=== PATIENT | female | born 1990 | race Caucasian/White ===

== ENCOUNTER 2018-01-11 00:27 | Emergency (ER) | payer OTHER ==
[2018-01-11] MEDS ORDERED: predniSONE 20 MG TAB PO (00:37)
[2018-01-11] MEDS: IPRATROPIUM (NEB) 0.5 MG/2.5 ML AMP NEB (00:50)
[2018-01-11] MEDS: ALBUTEROL 0.083% (NEB) 2.5 MG/3 ML AMP NEB (00:51)
[2018-01-11] MEDS: ALBUTEROL 0.5% (NEB) 2.5 MG/0.5 ML AMP INH (01:01)
[2018-01-11] MEDS: IPRATROPIUM (NEB) 0.5 MG/2.5 ML AMP INH (01:01)
[2018-01-11] MEDS: DEXAMETHASONE 10 MG/ML 1 ML INJ IV (01:03)
[2018-01-11] MEDS: MAGNESIUM SULFATE 2 GM/50 ML 50 ML IVPB (01:13)
[2018-01-11] MEDS: SOD CHLORIDE 0.9% 500 ML IV (01:13)
[2018-01-11 01:54] LABS: ADD MAN DIFF? NO
[2018-01-11 01:59] LABS: WHITE BLOOD COUNT 11.7 10^3/ul (4.8-10.8)
[2018-01-11 01:59] LABS: BASOPHIL # 0.1 10^3/ul (0.0-0.1); BASOPHILS % 0.7 % (0.0-2.0); EOSINOPHILS # 1.2 10^3/ul (0.0-0.5); EOSINOPHILS % 9.8 % (0.0-7.0); HEMATOCRIT 39.2 % (37.0-47.0); HEMOGLOBIN 12.6 g/dl (12.0-16.0); LYMPHOCYTES # 3.8 10^3/ul (0.8-2.9); MEAN CORPUSCULAR HEMOGLOBIN 25.6 pg (29.0-33.0); MEAN CORPUSCULAR HGB CONC 32.1 g/dl (32.0-37.0); MEAN CORPUSCULAR VOLUME 79.7 fl (82.0-101.0); MEAN PLATELET VOLUME 10.2 fl (7.4-10.4); MONOCYTE # 0.5 10^3/ul (0.3-0.9); MONOCYTES % 4.3 % (0.0-11.0); NEUTROPHIL # 6.2 10^3/ul (1.6-7.5); NEUTROPHILS % 52.9 % (39.0-77.0); PLATELET COUNT 283 10^3/UL (140-415); RED BLOOD COUNT 4.92 10^6/ul (4.20-5.40)
[2018-01-11 03:59] LABS: ANION GAP 14 (8-16)
[2018-01-11 04:00] LABS: BLOOD UREA NITROGEN 7 mg/dl (7-20); CALCIUM 9.2 mg/dl (8.4-10.2); CARBON DIOXIDE 25 mmol/L (21-31); CHLORIDE 109 mmol/L (97-110); CREATININE 0.72 mg/dl (0.44-1.00); GLUCOSE 121 mg/dl (70-220); POTASSIUM 3.4 mmol/L (3.5-5.1); SODIUM 145 mmol/L (135-144)
== END 2018-01-11 02:00 | disposition home or self-care (01) ==
LOC: E/R 00:27
DX: J45.901 Unspecified asthma with (acute) exacerbation (principal)
CPT/HCPCS: 36415; 71045; 80048; 85025; 94644; 94664; 96374; 96375; 99285-25

== ENCOUNTER 2018-04-11 08:46 | Emergency (ER) | payer OTHER ==
[2018-04-11] MEDS: ALBUTEROL 0.5% (NEB) 2.5 MG/0.5 ML AMP INH (09:19)
[2018-04-11] MEDS: IPRATROPIUM (NEB) 0.5 MG/2.5 ML AMP HHN (09:19)
[2018-04-11] MEDS: DEXAMETHASONE 10 MG/ML 1 ML INJ IM (09:24)
== END 2018-04-11 11:10 | disposition home or self-care (01) ==
LOC: FTE 08:46
DX: J45.901 Unspecified asthma with (acute) exacerbation (principal); R40.2412 Glasgow coma scale score 13-15, at arrival to emergency department
CPT/HCPCS: 94644; 96372; 99284-25